=== PATIENT | male | born 1945 | race Caucasian/White ===

== ENCOUNTER 2021-04-28 13:55 | Outpatient (RCR) | payer MEDICARE, BC, SELFPAY ==
[2021-04-28] MEDS: ACETAMINOPHEN 325 MG TABLET 650 MG PO (14:15)
[2021-04-28] MEDS: diphenhydrAMINE HCl CAP 25 MG CAPSULE PO (14:15)
[2021-04-28] MEDS: FAMOTIDINE 20 MG TABLET PO (14:15)
[2021-04-28 14:26] VITALS: BP 132/56; PULSE 76; RESP 20; TEMP 37.1; O2SAT 98
[2021-04-28 15:39] VITALS: BP 115/57
== END 2021-04-28 16:30 | disposition home or self-care (01) ==
LOC: AMCINF 13:55
PROVIDERS: PCP Physician Assistant Medical; Referring Provider Physician Assistant Medical; Visit Provider Internal Medicine Hematology & Oncology
DX: Z23 Encounter for immunization (principal); U07.1 COVID-19; I25.10 Atherosclerotic heart disease of native coronary artery without angina pectoris; J44.9 Chronic obstructive pulmonary disease, unspecified
CPT/HCPCS: A9270; J7050; M0243

== ENCOUNTER 2023-06-13 06:59 | Outpatient (CLI) | payer MEDICARE, BC, SELFPAY ==
--- NOTE | ~2023-06-13 | US_ITS ---
EXAMINATION: US scrotum doppler DATE: 06/13/2023 08:06 INDICATION: Right scrotal swelling TECHNIQUE: Testicular sonogram utilizing grayscale and Doppler COMPARISON: None. FINDINGS: The right testis measures 4.3 x 3.2 x 2.3 cm. The left testis measures 3.6 x 3.0 x 2.3 cm. Symmetric normal grayscale appearance to both testes. There is normal vascular flow to both testes. The right e pididymis is normal with normal vascular flow. 4 mm anechoic left epididymal head cyst. The left epid idymis is otherwise normal with normal vascular flow. There is no varicocele. Small left hydrocele. T here is a 4.9 x 3.1 x 4.3 cm anechoic fluid collection in the right hemiscrotum which appears encapsu lated separate from the right testis and epididymis and favor a large epididymal cyst rather than hyd rocele. IMPRESSION: 1. 4.9 x 3.1 x 4.3 cm fluid collection in the right hemiscrotum which appears loculated separate fro m the testis and epididymis and would favor an epididymal cyst over hydrocele. Reviewed, dictated and finalized at location A. NICAL DOCUMENTATION SPECIALIST IMPRESSION: 1. 4.9 x 3.1 x 4.3 cm fluid collection in the right hemiscrotum which appears loculated separate from the testis and epididymis and would favor an epididymal cyst over hydrocele.
== END 2023-06-13 07:00 | disposition home or self-care (01) ==
PROVIDERS: PCP Physician Assistant Medical; Visit Provider Physician Assistant Medical
DX: N50.89 Other specified disorders of the male genital organs (principal)
CPT/HCPCS: 76870; 93976

== ENCOUNTER 2023-09-19 08:05 | Outpatient (CLI) | payer MEDICARE, BC, SELFPAY ==
--- NOTE | ~2023-09-19 | XR_ITS ---
EXAMINATION: XR UGIAC w barium swallow DATE: 09/19/2023 09:04 INDICATION: Diaphragmatic hernia. Bulging. TECHNIQUE: The patient drank thick barium, gas-producing crystals, and thin barium. Fluoroscopy of th e esophagus, stomach, and proximal small bowel was performed. Fluoroscopy exposure time was 0.9 minut es. The total number of images was 278. Total dose-area product was 1.212 Gy-cm^2. COMPARISON: None. FINDINGS: There is no mass or stricture of the esophagus. Esophageal motility is normal. There is a s mall sliding hiatal hernia. There was gastroesophageal reflux with provocative maneuvers. The stomach and proximal small bowel show normal folding patterns. IMPRESSION: 1. Small sliding hiatal hernia. 2. Gastroesophageal reflux with provocative maneuvers. Reviewed, dictated and finalized at location A. EMENT INTERVIEWER
== END 2023-09-19 08:06 | disposition home or self-care (01) ==
PROVIDERS: PCP Physician Assistant Medical; Visit Provider Nurse Practitioner
DX: K44.9 Diaphragmatic hernia without obstruction or gangrene (principal); R07.89 Other chest pain; R13.10 Dysphagia, unspecified; R14.2 Eructation; K21.9 Gastro-esophageal reflux disease without esophagitis
CPT/HCPCS: 74246